=== PATIENT | male | born 1980 | race Caucasian/White ===

== ENCOUNTER 2019-02-03 11:03 | Emergency (ER) | payer MEDICAID, OTHER ==
[~2019-02-03] VITALS: Ht 175.3 cm; Wt 79.4 kg
[~2019-02-03 11:03] MED LIST: HYDR-1421
[2019-02-03 11:30] VITALS: BP 108/76
[2019-02-03] MEDS ORDERED: SODIUM CHLORIDE 0.9% 1,000 ML IV ONE ×2 (12:13)
[2019-02-03] MEDS ORDERED: PROCHLORPERAZINE EDISYLATE 5 MG/ML 2ML VIAL IV ONE (12:15)
== END 2019-02-03 17:40 | disposition left against medical advice (07) ==
LOC: ER 11:03
DX: E86.0 Dehydration (principal); F12.188 Cannabis abuse with other cannabis-induced disorder

== ENCOUNTER → 2021-07-04 | Emergency (ER) | payer OTHER ==
[~2021-07-04] VITALS: Ht 175.3 cm; Wt 81.6 kg
[~2021-07-04] MED LIST changes: +HYDROcodone-ACET 10/325MG TAB PO ONE; +IBUP400T22 PO
[2021-07-04 04:18] VITALS: BP 128/81
== END | disposition home or self-care (01) ==
LOC: ER 03:40 → EDUNIT# 03:40
DX: S46.911A Strain of unspecified muscle, fascia and tendon at shoulder and upper arm level, right arm, initial encounter (principal); F17.210 Nicotine dependence, cigarettes, uncomplicated; Z79.1 Long term (current) use of non-steroidal anti-inflammatories (NSAID); Z79.899 Other long term (current) drug therapy; W05.1XXA Fall from non-moving nonmotorized scooter, initial encounter; Y93.89 Activity, other specified; Y92.89 Other specified places as the place of occurrence of the external cause; Y99.8 Other external cause status
CPT/HCPCS: 73020

== ENCOUNTER 2021-10-28 08:29 | Inpatient (IN) | payer OTHER ==
[~2021-10-28] VITALS: Ht 175.3 cm; Wt 87.9 kg
[~2021-10-28 08:29] MED LIST changes: -HYDROcodone-ACET 10/325MG TAB PO ONE
[2021-10-28] MEDS ORDERED: SODIUM CHLORIDE 0.9% 1,000 ML IV ONE ×2 (10:15)
[2021-10-28] MEDS ORDERED: KETOROLAC TROMETH 30 MG/ML 1ML VIAL IV ONE (10:15)
[2021-10-28 10:53] LABS: Basophils # (auto) 0 10 ^3/uL (0-0.2); Basophils % (auto) 0.4 % (0.0-2.0); Eosinophils # (auto) 0.2 10 ^3/uL (0-0.8); Eosinophils % (auto) 1.8 % (0.0-7.0); Lymphocytes # (auto) 2.2 10 ^3/uL (0.4-5.4); Lymphocytes % (auto) 18.5 % (10.0-50.0); Mean Corpuscular Hemoglobin 30.7 pg (28.0-32.0); Mean Corpuscular Volume 90.2 fL (80.0-100.0); Monocytes # (auto) 1.2 10 ^3/uL (0-1.3); Monocytes % (auto) 10.5 % (0.0-12.0); Neutrophils # (auto) 8.1 10 ^3/uL (1.6-8.6); Neutrophils % (auto) 68.8 % (37.0-80.0); Nucleated Red Blood Cells % 0.1 %; Red Blood Cells 4.55 10^6/uL (4.5-5.90); Red Cell Distribution Width 13.6 % (11.8-14.3); White Blood Cell 11.8 10^3/uL (4.4-10.8)
[2021-10-28 11:17] LABS: Potassium 4.7 mmol/L (3.5-5.1)
[2021-10-28 11:22] LABS: Albumin 3.9 g/dL (3.4-5.0); BUN/Creatinine Ratio 12.8; Bilirubin, Total 0.4 mg/dL (0.2-1.0); Calcium 8.8 mg/dL (8.5-10.1); Total Protein 6.6 g/dL (6.4-8.2)
[2021-10-28 12:55] LABS: Urine Bacteria NONE SEEN /hpf (None Seen); Urine Blood 2+ /uL (Negative); Urine Mucus FEW (None Seen); Urine Specific Gravity 1.016 (1.001-1.035); Urine WBC 5 /hpf (0 - 3)
[2021-10-28] MEDS ORDERED: FUROSEMIDE 20 MG/2 ML VIAL IV ONE (14:15)
[2021-10-28] MEDS ORDERED: TAMSULOSIN HYDROCHLORIDE 0.4 MG CAP PO ONE ×2 (14:15→22:00)
[2021-10-28] MEDS ORDERED: ONDANSETRON HCL 4 MG/2 ML VIAL IV PRN (15:45)
[2021-10-28] MEDS: SODIUM CHLORIDE 0.9% 1,000 ML IV SCH (15:45)
[2021-10-28] MEDS ORDERED: HYDROcodone-ACET 5/325MG TAB PO PRN (15:45)
[2021-10-28] MEDS ORDERED: DOCUSATE SOD 100 MG CAP PO PRN (15:45)
[2021-10-28] MEDS ORDERED: cefTRIAXone 1GM/50ML D5W 50 ML IV ONE (16:00)
[2021-10-28] MEDS ORDERED: ONDANSETRON HCL 4 MG/2 ML VIAL IV ONE (18:00)
[2021-10-28] MEDS ORDERED: MORPHINE SULFATE INJ 2 MG/ml SYRG IV ONE (18:00)
[2021-10-28 18:47] LABS: INR 1.03 (0.9-1.15)
[2021-10-28] MEDS: MORPHINE SULFATE INJ 2 MG/ml SYRG IV PRN (19:51)
[2021-10-28 22:00] VITALS: BP 105/71
[2021-10-29] MEDS: SODIUM CHLORIDE 0.9% 1,000 ML IV SCH ×3 (00:05→16:45)
[2021-10-29 05:00] VITALS: BP 99/61
[2021-10-29 06:03] LABS: Basophils # (auto) 0 10 ^3/uL (0-0.2); Basophils % (auto) 0.5 % (0.0-2.0); Eosinophils # (auto) 0.3 10 ^3/uL (0-0.8); Eosinophils % (auto) 3.9 % (0.0-7.0); Hematocrit 39.8 % (41.0-53.0); Hemoglobin 13.2 g/dL (13.5-17.5); Lymphocytes % (auto) 37.8 % (10.0-50.0); Mean Corpuscular Hemoglobin 29.7 pg (28.0-32.0); Mean Corpuscular Hgb Conc. 33.1 g/dL (32.0-36.0); Mean Corpuscular Volume 89.9 fL (80.0-100.0); Monocytes # (auto) 0.7 10 ^3/uL (0-1.3); Monocytes % (auto) 8.4 % (0.0-12.0); Neutrophils % (auto) 49.4 % (37.0-80.0); Red Blood Cells 4.42 10^6/uL (4.5-5.90); Red Cell Distribution Width 13.7 % (11.8-14.3)
[2021-10-29 06:15] LABS: Albumin 3.2 g/dL (3.4-5.0); Calcium 8.4 mg/dL (8.5-10.1); Potassium 4.8 mmol/L (3.5-5.1)
[2021-10-29 06:19] LABS: Bilirubin, Total 0.4 mg/dL (0.2-1.0); Total Protein 5.5 g/dL (6.4-8.2)
[2021-10-29 09:00] VITALS: BP 102/59
[2021-10-29] MEDS: cefTRIAXone 1GM/50ML D5W 50 ML IV SCH (10:06)
[2021-10-29 13:00] VITALS: BP 115/73
[2021-10-29 17:00] VITALS: BP 127/80
[2021-10-29] MEDS: MORPHINE SULFATE INJ 2 MG/ml SYRG IV PRN (20:42)
[2021-10-29 21:54] VITALS: BP 123/78
[2021-10-30] MEDS: SODIUM CHLORIDE 0.9% 1,000 ML IV SCH ×4 (01:05→18:05)
[2021-10-30 04:52] VITALS: BP 120/73
[2021-10-30 09:00] VITALS: BP 133/77
[2021-10-30] MEDS: cefTRIAXone 1GM/50ML D5W 50 ML IV SCH (10:07)
[2021-10-30] MEDS: MORPHINE SULFATE INJ 2 MG/ml SYRG IV PRN ×3 (10:21→22:26)
[2021-10-30 12:47] VITALS: BP 124/76
[2021-10-30] MEDS ORDERED: ceFAZolin 1GM/50ML 100 ML IV ONE (13:43)
[2021-10-30] MEDS ORDERED: fentaNYL CITRATE 100 MCG/2 ML VL ONE (14:47)
[2021-10-30] MEDS ORDERED: ROCURONIUM 10MG/ML 10ML VIAL IV ONE (14:47)
[2021-10-30] MEDS ORDERED: MIDAZOLAM HCL 2MG/2ML 2ml VIAL (1mg/ml) ONE (14:47)
[2021-10-30] MEDS ORDERED: LIDOCAINE 2% (LOCAL ANESTH.) PF 5ml SDV ONE (14:51)
[2021-10-30] MEDS ORDERED: PROPOFOL 10 MG/ML 20 ML IV ONE (14:51)
[2021-10-30] MEDS ORDERED: ONDANSETRON HCL 4 MG/2 ML VIAL ONE (14:51)
[2021-10-30] MEDS ORDERED: HYDROmorphone HCL 2 MG/ML VL/or syr IV PRN ×2 (15:30)
[2021-10-30] MEDS ORDERED: ONDANSETRON HCL 4 MG/2 ML VIAL IV PRN (15:30)
[2021-10-30] MEDS ORDERED: DexAMETHasone SOD PHOS 10MG/1ML VIAL INJ ONE (15:36)
[2021-10-30] MEDS ORDERED: SUGAMMADEX 200mg/2ml Vial (100MG/ML) IV ONE (15:41)
[2021-10-30 17:00] VITALS: BP 141/88
[2021-10-30 22:16] VITALS: BP 131/72
[2021-10-31] MEDS: SODIUM CHLORIDE 0.9% 1,000 ML IV SCH ×2 (02:05→10:25)
[2021-10-31] MEDS: MORPHINE SULFATE INJ 2 MG/ml SYRG IV PRN ×2 (02:16→08:10)
[2021-10-31 04:58] VITALS: BP 105/58
[2021-10-31 08:20] VITALS: BP 114/56
[2021-10-31] MEDS ORDERED: CIPR-173 PO (09:28)
[2021-10-31] MEDS ORDERED: TRAM50TA2 PO (09:28)
[2021-10-31] MEDS: cefTRIAXone 1GM/50ML D5W 50 ML IV SCH (09:32)
[2021-10-31 12:01] VITALS: BP 114/56
[2021-10-31 12:15] VITALS: BP 129/85
== END 2021-10-31 12:45 | disposition home or self-care (01) | DRG 463 ==
LOC: ER 08:29 → OVERFLOW 15:52 → EAST 21:05
PROVIDERS: ADMIT Nurse Practitioner Family; ATTEND Family Medicine
PROC: 0TF78ZZ Fragmentation in Left Ureter, Via Natural or Artificial Opening Endoscopic (ICD-10-PCS; 2021-10-30)
PROC: 0T778DZ Dilation of Left Ureter with Intraluminal Device, Via Natural or Artificial Opening Endoscopic (ICD-10-PCS; principal; 2021-10-30 14:50)
DX: N13.6 Pyonephrosis (principal); E87.1 Hypo-osmolality and hyponatremia; D72.829 Elevated white blood cell count, unspecified; S46.911A Strain of unspecified muscle, fascia and tendon at shoulder and upper arm level, right arm, initial encounter; F17.200 Nicotine dependence, unspecified, uncomplicated; R31.9 Hematuria, unspecified; R73.9 Hyperglycemia, unspecified; Z20.822 Contact with and (suspected) exposure to COVID-19
CPT/HCPCS: 36415; 74176; 76000; 76775; 80053; 81001; 85025; 85610; 86850; 86900; 86901; 93005; 96361; 96374; 96375; G0378; J0690; J0696; J1100; J1885; J2001; J2250; J2405; J2704

== ENCOUNTER 2021-12-10 00:12 | Emergency (ER) | payer MEDICAID, OTHER ==
[~2021-12-10] VITALS: Ht 175.3 cm; Wt 81.0 kg
[2021-12-10 00:12] VITALS: BP 134/82
[~2021-12-10 00:12] MED LIST changes: +CIPR-173 PO; +TRAM50TA2 PO
[2021-12-10] MEDS ORDERED: ONDANSETRON HCL 4 MG/2 ML VIAL IV ONE (02:15)
[2021-12-10] MEDS ORDERED: HYDROmorphone HCL 2 MG/ML VL/or syr IV ONE (02:15)
[2021-12-10] MEDS ORDERED: SODIUM CHLORIDE 0.9% 1,000 ML IV ONE (02:15)
[2021-12-10 02:38] LABS: Basophils # (auto) 0.1 10 ^3/uL (0-0.2); Basophils % (auto) 0.7 % (0.0-2.0); Eosinophils # (auto) 0.5 10 ^3/uL (0-0.8); Eosinophils % (auto) 5.4 % (0.0-7.0); Hematocrit 42.5 % (41.0-53.0); Hemoglobin 14.7 g/dL (13.5-17.5); Lymphocytes # (auto) 3.2 10 ^3/uL (0.4-5.4); Lymphocytes % (auto) 33.7 % (10.0-50.0); Mean Corpuscular Hemoglobin 30.8 pg (28.0-32.0); Mean Corpuscular Hgb Conc. 34.4 g/dL (32.0-36.0); Mean Corpuscular Volume 89.3 fL (80.0-100.0); Monocytes # (auto) 0.8 10 ^3/uL (0-1.3); Monocytes % (auto) 8.5 % (0.0-12.0); Neutrophils # (auto) 4.8 10 ^3/uL (1.6-8.6); Neutrophils % (auto) 51.7 % (37.0-80.0); Red Blood Cells 4.77 10^6/uL (4.5-5.90); Red Cell Distribution Width 13.4 % (11.8-14.3); White Blood Cell 9.4 10^3/uL (4.4-10.8)
[2021-12-10 02:56] LABS: INR 0.95 (0.9-1.15); Partial Thromboplastin Time 27.1 sec (24.6-33.4)
[2021-12-10 02:57] LABS: Albumin 3.8 g/dL (3.4-5.0); BUN/Creatinine Ratio 17.1; Calcium 9.1 mg/dL (8.5-10.1); Potassium 4.2 mmol/L (3.5-5.1)
[2021-12-10 03:14] LABS: Bilirubin, Total 0.2 mg/dL (0.2-1.0); Total Protein 6.8 g/dL (6.4-8.2)
[2021-12-10 03:18] LABS: Alcohol, Urine < 3.0 mg/dL (0-10); Amphetamine Screen, Urine POSITIVE (NEGATIVE); Barbiturate Scree,Urine NEGATIVE (NEGATIVE); Benzodiazephine Screen, Urine NEGATIVE (NEGATIVE); Cocaine Screen, Urine NEGATIVE (NEGATIVE); Opiate Scree,Urine NEGATIVE (NEGATIVE); Phencyclidine Screen, Urine NEGATIVE (NEGATIVE)
[2021-12-10 03:27] LABS: Urine Bacteria NONE SEEN /hpf (None Seen); Urine WBC 98 /hpf (0 - 3)
[2021-12-10 03:28] LABS: Cannabinoid Screen, Urine POSITIVE (NEGATIVE)
[2021-12-10 03:31] LABS: Urine Blood 4+ /uL (Negative)
== END 2021-12-10 03:32 | disposition left against medical advice (07) ==
LOC: ER 00:12
DX: N39.0 Urinary tract infection, site not specified (principal); F17.210 Nicotine dependence, cigarettes, uncomplicated; Z79.2 Long term (current) use of antibiotics; Z79.1 Long term (current) use of non-steroidal anti-inflammatories (NSAID); Z79.899 Other long term (current) drug therapy
CPT/HCPCS: 36415; 71045; 74176; 80053; 80307; 81001; 84484; 85025; 85610; 85730; 93005

== ENCOUNTER 2024-07-26 13:30 | Emergency (ER) | payer MEDICAID ==
[~2024-07-26] VITALS: Ht 175.3 cm; Wt 83.0 kg
[~2024-07-26 13:30] MED LIST changes: +IBUP-1453 PO; -IBUP400T22 PO
[2024-07-26 13:52] VITALS: TEMP 98.1
[2024-07-26 14:26] LABS: Basophils # (auto) 0.1 10 ^3/uL (0-0.2); Basophils % (auto) 0.4 % (0.0-2.0); Eosinophils # (auto) 0.2 10 ^3/uL (0-0.8); Eosinophils % (auto) 1.2 % (0.0-7.0); Hematocrit 43.9 % (41.0-53.0); Hemoglobin 15.1 g/dL (13.5-17.5); Lymphocytes # (auto) 1.3 10 ^3/uL (0.4-5.4); Mean Corpuscular Hemoglobin 30.5 pg (28.0-32.0); Mean Corpuscular Hgb Conc. 34.4 g/dL (32.0-36.0); Mean Corpuscular Volume 88.8 fL (80.0-100.0); Monocytes # (auto) 1.2 10 ^3/uL (0-1.3); Neutrophils # (auto) 16.4 10 ^3/uL (1.6-8.6); Neutrophils % (auto) 85.4 % (37.0-80.0); Platelet Count (auto) 202 10^3/uL (140-450); Red Blood Cells 4.94 10^6/uL (4.5-5.90); Red Cell Distribution Width 13.9 % (11.8-14.3); White Blood Cell 19.2 10^3/uL (4.4-10.8)
[2024-07-26 14:31] LABS: Anion Gap 7 (5-15); Carbon Dioxide 29 mmol/L (20-31); Chloride 106 mmol/L (98-107); Sodium 142 mmol/L (136-145)
[2024-07-26 14:32] LABS: Calcium 10.3 mg/dL (8.7-10.4)
[2024-07-26 14:35] LABS: Rapid Strep A Screen-Throat Positive
[2024-07-26 14:36] LABS: COVID19 ANTIGEN SOFIA FIA NEGATIVE (NEGATIVE)
[2024-07-26 14:37] LABS: BUN/Creatinine Ratio 11.5 (10.0-20.0); Blood Urea Nitrogen 13 mg/dL (9-23)
[2024-07-26 14:38] LABS: Glucose 106 mg/dL (74-106)
[2024-07-26] MEDS: PENICILLIN G BENZ 1,200,000 UNITS/2 ML SYRG IM ONE (14:45)
--- NOTE | 2024-07-26 15:04 | ED.PDOC ---
History of Present Illness HPI Comments 43 year old male presents to the ED for the c/c of a Sore throat. Onset: 2 days ago. No sick contacts. Taking IBU with some improvement. Denies chest pain shortness of breath Denies inability to move neck, history of meningitis Denies difficulty swallowing nor persistent salivation Denies fevers chills night sweats Denies persistent cough, runny nose, congestion Denies loss of appetite, unintentional weight loss over the past 3 months Denies voice changes Denies history of asthma or seasonal allergies Chief Complaint: Sore Throat Time Seen by MD: 15:00 Primary Care Provider: DR AGGARWAL Reviewed Notes: Nurses Notes, Medications, Allergies Allergies: Coded Allergies: NO KNOWN ALLERGIES (Unverified , 01/05/12) Home Meds Active Scripts Tramadol Hcl (Tramadol Hcl) 50 Mg Tab, 50 MG PO QID PRN, #30 TAB Prov:TEGAN ESCOBEDO MD 10/31/21 Ciprofloxacin Hcl (Cipro) 500 Mg Tab, 1 TAB PO BID, #14 TAB Prov:TEGAN ESCOBEDO MD 10/31/21 Ibuprofen (Ibuprofen) 400 Mg Tab, 1 TAB PO Q6HPRN, #20 TAB Prov:TANA KNOWLES MD 07/04/21 Reported Medications Hydrocodone-Acetaminophen (Vicodin) 1 Tab Tab 01/05/12 Information Source: Patient, [facility] Medical Record Mode of Arrival: Ambulatory Severity: Mild Timing: Days Duration: Since onset, Days Prehospital treatment: None Past Medical History PAST MEDICAL HISTORY: Kidney Stones Surgical History: Denies all surgeries Family History Family History: Reviewed,noncontributory to illness Social History Smoker: Cigarettes Alcohol: Occasionally Drugs: Marijuana Lives In: Home Constitutional: denies: chills, diaphoresis, fatigue, fever, malaise, sweats, weakness, others EENTM: denies: blurred vision, double vision, ear bleeding, ear discharge, ear drainage, ear pain, ear ringing, eye pain, eye redness, hearing loss, mouth pain, mouth swelling, nasal discharge, nose bleeding, nose congestion, nose pain, photophobia, tearing, throat pain, throat swelling, voice changes, others Respiratory: reports: others (Sore Throat); denies: cough, hemoptysis, orthopnea, SOB at rest, shortness of breath, SOB with excertion, stridor, wheezing Cardiovascular: denies: chest pain, dizzy spells, diaphoresis, Dyspnea on exertion, edema, irregular heart beat, left arm pain, lightheadedness, palpitations, PND, syncope, others Gastrointestinal: denies: abdomen distended, abdominal pain, blood streaked bowels, constipated, diarrhea, dysphagia, difficulty swallowing, hematemesis, melena, nausea, poor appetite, poor fluid intake, rectal bleeding, rectal pain, vomiting, others Genitourinary: denies: burning, dysuria, flank pain, frequency, hematuria, incontinence, penile discharge, penile sore, pain, testicle pain, testicle swelling, urgency, others Neurological: denies: dizziness, fainting, headache, left sided numbness, left sided weakness, numbness, paresthesia, pre-existing deficit, right sided numbness, right sided weakness, seizure, speech problems, tingling, tremors, weakness, others Musculoskeletal: denies: back pain, gout, joint pain, joint swelling, muscle pain, muscle stiffness, neck pain, others Integumetry: denies: bruises, change in color, change in hair/nails, dryness, laceration, lesions, lumps, rash, wounds, others Allergic/Immunocompromised: denies: Difficulty Healing, Frequent Infections, Hives, Itching, others Hematologic/Lymphatic: denies: anemia, blood clots, easy bleeding, easy bruising, swollen glands, others Endocrine: denies: excessive hunger, excessive sweating, excessive thirst, excessive urination, flushing, intolerance to cold, intolerance to heat, unexplained weight gain, unexplained weight loss, others Psychiatric: denies: anxiety, bipolar disorder, depression, hopeless, panic disorder, schizophrenia, sleepless, suicidal, others All Other Systems: Reviewed and Negative Physical Exam General Appearance: No Apparent Distress, Normal HEENT: Normal ENT Inspection, Pharynx Normal, TMs Normal Neck: Full Range of Motion, Non-Tender, Normal, Normal Inspection Respiratory: Chest Non-Tender, Lungs Clear, No Accessory Muscle Use, No Respiratory Distress, Normal Breath Sounds, Other (Uvula midline, MMM, airway i ntact, No starwberry tounge, No koplic spots) Cardiovascular: No Edema, No JVD, No Murmur, No Gallop, Normal Peripheral Pulses, Regular Rate/Rhythm Breast Exam: Deferred Gastrointestinal: No Organomegaly, Non Tender, No Pulsatile Mass, Normal Bowel Sounds, Soft Genitalia: Deferred Pelvic: Deferred Rectal: Deferred Extremities: No calf tenderness, Normal capillary refill, Normal inspection, Normal range of motion, Non-tender, No pedal edema Musculoskeletal : Apperance: Normal Neurologic: Alert, senior web designer II-XII nml as Tested, No Motor Deficits, Normal Affect, Normal Mood, No Sensory Deficits Cerebellar Function: Normal Reflexes: Normal Skin: Dry, Normal Color, Warm Lymphatic: No Adenopathy Was a procedure done? Was a procedure done?: No Differential Dx Considerations may include: pharyngitis, strep, viral, X-Ray, Labs, Meds, VS Vital Signs Date Time Temp Pulse Resp B/P (MAP) Pulse Ox O2 Delivery O2 Flow Rate FiO2 07/26/24 16:22 94 16 141/77 (98) 97 07/26/24 16:22 94 16 97 Room Air 07/26/24 13:52 98.1 94 16 141/77 (98) 97 98.1 Lab Test 07/26/24 14:13 07/26/24 14:08 Range/Units White Blood Count 19.2 H 4.4-10.8 10^3/uL Red Blood Count 4.94 4.5-5.90 10^6/uL Hemoglobin 15.1 13.5-17.5 g/dL Hematocrit 43.9 41.0-53.0 % Mean Corpuscular Volume 88.8 80.0-100.0 fL Mean Corpuscular Hemoglobin 30.5 28.0-32.0 pg Mean Corpuscular Hemoglobin Concent 34.4 32.0-36.0 g/dL Red Cell Distribution Width 13.9 11.8-14.3 % Platelet Count 202 140-450 10^3/uL Mean Platelet Volume 7.9 6.9-10.8 fL Neutrophils (%) (Auto) 85.4 H 37.0-80.0 % Lymphocytes (%) (Auto) 7.0 L 10.0-50.0 % Monocytes (%) (Auto) 6.0 0.0-12.0 % Eosinophils (%) (Auto) 1.2 0.0-7.0 % Basophils (%) (Auto) 0.4 0.0-2.0 % Neutrophils # (Auto) 16.4 H 1.6-8.6 10 ^3/uL Lymphocytes # (Auto) 1.3 0.4-5.4 10 ^3/uL Monocytes # (Auto) 1.2 0-1.3 10 ^3/uL Eosinophils # (Auto) 0.2 0-0.8 10 ^3/uL Basophils # (Auto) 0.1 0-0.2 10 ^3/uL Nucleated Red Blood Cells 0.0 % Sodium Level 142 136-145 mmol/L Potassium Level 4.0 3.5-5.1 mmol/L Chloride Level 106 98-107 mmol/L Carbon Dioxide Level 29 20-31 mmol/L Anion Gap 7 5-15 Blood Urea Nitrogen 13 9-23 mg/dL Creatinine 1.13 0.700-1.30 mg/dL Glomerular Filtration Rate Calc 84 >90 mL/min BUN/Creatinine Ratio 11.5 10.0-20.0 Serum Glucose 106 74-106 mg/dL Calcium Level 10.3 8.7-10.4 mg/dL SARS-CoV-2 Antigen (Rapid) Negative NEGATIVE Group A Streptococcus Rapid Positive Current Medications Medications (Trade) Dose Ordered Sig/Chari Route Start Time Stop Time Status Last Admin Penicillin G Benzathine (Bicillin L-A) 1,200,000 units ONCE ONCE IM 07/26/24 14:45 07/26/24 14:46 DC 07/26/24 14:45 Dexamethasone Sodium Phosphate (Decadron Injection) 10 mg ONCE ONCE IM 07/26/24 14:45 07/26/24 14:46 DC 07/26/24 16:10 Ketorolac Tromethamine (Toradol Injection) 60 mg ONCE ONCE IM 07/26/24 14:45 07/26/24 14:46 DC 07/26/24 16:10 X-Ray, Labs, Meds, VS Comment 43 year old male presents to the ED for the c/c of a Sore throat. Patient arrives alert and oriented, ABC's intact, afebrile, vital signs stable, saturating well in room air CBC was ordered to exclude anemia, blood loss, or infection. BMP was ordered to exclude electrolyte abnormalities, renal failure, dehydration, hyperglycemia Strep Screen Patient was given: penicillin, Toradol, Decadron x 1 Exam/test findings consistent with strep throat infection. Encouraged fluid intake Acetaminophen to reduce pain/fever NSAIDs to reduce pain/fever Nonpharmacological recommendations given Warm salt water gargles Throat lozenges Humidified air Return precautions given Worsening pain Fevers past 48 hours after antibiotics Any neck pain, headache, vision issues, or other concerns Additional MDM Review of External, Non-ED records: External records reviewed. Discussion with independent historian (EMS, family) history obtained from the patient/parents (if applicable) at bedside Chronic conditions affecting care: None Social determinants of health affecting care: None Time of 1ST Reevaluation: 15:30 Reevaluation 1ST: Improved Patient Education/Counseling: Diagnosis, Treatment Family Education/Counseling: No Family Present SEPSIS Sepsis Screen Vital Signs Date Time Temp Pulse Resp B/P (MAP) Pulse Ox O2 Delivery O2 Flow Rate FiO2 07/26/24 16:22 94 16 141/77 (98) 97 07/26/24 16:22 94 16 97 Room Air 07/26/24 13:52 98.1 94 16 141/77 (98) 97 98.1 Laboratory Tests Test 07/26/24 14:13 White Blood Count 19.2 10^3/uL (4.4-10.8) H Medications Medications Dose Ordered Sig/Chari Route Start Time Stop Time Status Last Admin Dose Admin Dexamethasone Sodium Phosphate 10 mg ONCE ONCE IM 07/26/24 14:45 07/26/24 14:46 DC 07/26/24 16:10 Ketorolac Tromethamine 60 mg ONCE ONCE IM 07/26/24 14:45 07/26/24 14:46 DC 07/26/24 16:10 Penicillin G Benzathine 1,200,000 units ONCE ONCE IM 07/26/24 14:45 07/26/24 14:46 DC 07/26/24 14:45 Departure 1 Departure Time of Disposition: 15:27 Impression: Primary Impression: Strep throat Disposition: 01 HOME / SELF CARE / HOMELESS Condition: Fair Discharged With: Self Critical Care Note Critical Care Time?: No Stability Stability form required: No Heart Score Heart Score: Heart Score Response (Comments) Value History N/A 0 EKG N/A 0 Age N/A 0 Risk Factors N/A 0 Troponin N/A 0 Total 0 I personally scribed for AMBER AGUIRRE NP ([email or web address]) on 07/26/24 at 15:04. Electronically submitted by Jhonatan Mosley ([email or web address]). I personally scribed for AMBER AGUIRRE NP ([email or web address]) on 07/26/24 at 15:05. Electronically submitted by Jhonatan Mosley ([email or web address]). AMBER AGUIRRE NP Jul 26, 2024 15:04
[2024-07-26] MEDS: DexAMETHasone SOD PHOS 10MG/1ML VIAL INJ IM ONE (16:10)
[2024-07-26] MEDS: KETOROLAC TROMETH 60MG/2ML VIAL IM ONE (16:10)
[2024-07-26 16:22] VITALS: BP 141/77; PULSE 94; RESP 16; O2SAT 97
== END 2024-07-26 16:24 | disposition home or self-care (01) ==
LOC: ER 13:32
DX: J02.0 Streptococcal pharyngitis (principal); F17.210 Nicotine dependence, cigarettes, uncomplicated; F12.90 Cannabis use, unspecified, uncomplicated; F10.90 Alcohol use, unspecified, uncomplicated; Z79.899 Other long term (current) drug therapy; Z87.442 Personal history of urinary calculi; Z20.822 Contact with and (suspected) exposure to COVID-19; Y90.9 Presence of alcohol in blood, level not specified
CPT/HCPCS: 36415; 80048; 85025; 87426; 87880; 96372; 99284; J0561; J1100; J1885

== ENCOUNTER 2024-12-11 11:16 | Emergency (ER) | payer MEDICAID ==
[~2024-12-11] VITALS: Ht 175.3 cm; Wt 180.0 kg
[2024-12-11 11:25] VITALS: PULSE 83; RESP 18; TEMP 98; O2SAT 94
--- NOTE | 2024-12-11 11:28 | ED.PDOC ---
SOB-HPI HPI Comments HPI: 43M presents to the ER w/ the c/c of SOB/cough for the past 4 days. Pt went to today and was diaphoretic associated w/ possible near syncopal episodes. There were no fall, trauma, pain at this time. Pt's vitals are stable. Initial Vitals BP:140/100 BS:120 Past Medical history: Kidney Stones Past Surgical history: Lazer Sx for Kidney stones Medications: Social History: Denies smoking, ETOH, and drug use. Allergies: NKDA HPI: Poor Historian. REVIEW OF SYSTEMS: CONSTITUTIONAL: Denies acute: fever, diaphoresis, HEAD: Denies acute: headache, photophobia Eyes: Denies acute: Double vision, vision loss, eye pain, eye discharge. EARS: Denies acute: tinnitus, hearing loss, ear discharge, ear pain, THROAT: Denies acute: sore throat, swelling, difficulty swallowing , pain with swallowing, change in voice. NECK: Denies acute: neck pain, neck swelling, stiff neck. HEART: Denies acute : chest pain, palpitations, LUNGS: Denies acute: wheezing, hemoptysis ABDOMEN: Denies acute: abdominal pain, Nausea, Vomiting, diarrhea, melena , hematemesis, hematochezia SKIN: Denies acute: rash, redness, lesions, itchiness. EXTREMITIES: Denies acute: calf pain, numbness, tingling, weakness, denies pain in extremity. Denies acute: Low back pain. Neuro: Denies acute: focal neurological deficit, motor or sensory focal neurological deficit, tremors, seizure like activity, confusion, change in mental status, loss of bowel or bladder function, cauda equina like symptoms. : Denies acute: dysuria, hematuria, flank pain, increase in urinary frequency. PSYCH: Denies acute: hallucination, suicidal ideation, homicidal ideation. PHYSICAL EXAM: General: -----[id number]---acute distress, awake and alert. Head: normocephalic, atraumatic. No raccoon's eyes, no null sign. Neck: supple, trachea is midline, no swelling. Throat: Normal phonation. Eyes:, no erythema, no purulent discharge, no proptosis, no icterus. Heart: regular rate, regular rhythm, no significant murmur appreciated. Lungs: no apparent respiratory distress, Able to speak in full sentences. Mild bilateral wheezing, no rhonchi, no crackles. No stridors Abdomen: non tender to palpation, non distended, soft, no guarding, no rebound, + bowel sounds. Neuro: Awake, Alert, oriented to name, self, situation, follows commands GCS=15. Speech is normal. Skin: no petechia, no purpura, no cyanosis, non-pale, not jaundice. Lower extremities: --no - Pitting edema no deformity, no focal swelling, no calf TTP. Makes eye contact. moves all four extremities. Face: no apparent facial droop. ED COURSE: DISCLAIMER: This medical document was created using an electronic medical record system with voice recognition software and computerized dictation system. Although this docu ment has been carefully reviewed, there might still be some phonetic and typographical errors. Occasional wrong-word or "sound-alike" substitutions may have occurred due to the inherent limitations of voice recognition software. These areas are purely typographical due to imperfections of the software programs and do not reflect any compromise in the patient's medical care. Please read the chart carefully and recognize, using context, where these substitutions have occurred. Chief Complaint: Syncope Time Seen by MD: 11:30 Primary Care Provider: ALESSIA Reviewed notes: Nurses Notes, Medications, Allergies Information Source: Patient Severity: Moderate Duration: Days Context: Spontaneous Onset PE Risk Factors: None EKG EKG : Pulse Rate (adult): 75 Cardiac Rhythm: NSR Block: None Hypertrophy: None ST: Normal Comments T wave inversions on , VII, VIII Was a procedure done? Was a procedure done?: No Differential Dx Differential Diagnosis: Anxiety, Asthma, Bronchitis, Cardiogenic Shock, CHF, COPD, Dysrhythmia, Hypertension, Hyperventilation, Hyponatremia, Myocardial infarction, Panic Attack, Pneumonia, Pneumothorax, PSVT, Pulmonary Embolism, Respiratory Distress, Sinusitis, Allergic Rhinitis, Otitis Media, Peritonsillar Abscess, Peritonsillar Cellulitis, Pharyngitis, URI, Other (Sepsis, viral etiology, bacterial etiology. DDx include ACS, unstable angina, anxiety, PE, pneumothroax, neoplasm, cardiac ischemia, COPD, asthma, CHF, pleural effusion, tobacco abuse, pneumonia, hypoxia, hypercapnia, anemia., infection/sepsis., pulmonary edema. Asthma, Cardiac tamponade, infection.) X-Ray, Labs, Meds, VS Vital Signs Date Time Temp Pulse Resp B/P (MAP) Pulse Ox O2 Delivery O2 Flow Rate FiO2 12/11/24 15:21 120/70 (87) 12/11/24 13:45 20 98 Room Air* 0 21 21 12/11/24 13:30 93 19 167/108 (127) 100 12/11/24 12:30 79 19 139/92 (108) 98 12/11/24 11:36 75 12/11/24 11:25 83 18 94 Room Air* 0 21 12/11/24 11:25 98.0 83 18 142/92 (109) 94 98.0 12/11/24 11:21 98.0 87 14 144/94 92 98.0 12/11/24 11:19 75 Lab Test 12/11/24 11:25 12/11/24 11:20 Range/Units White Blood Count 9.9 4.4-10.8 10^3/uL Red Blood Count 4.71 4.5-5.90 10^6/uL Hemoglobin 14.4 13.5-17.5 g/dL Hematocrit 41.9 41.0-53.0 % Mean Corpuscular Volume 89.0 80.0-100.0 fL Mean Corpuscular Hemoglobin 30.5 28.0-32.0 pg Mean Corpuscular Hemoglobin Concent 34.2 32.0-36.0 g/dL Red Cell Distribution Width 13.6 11.8-14.3 % Platelet Count 204 140-450 10^3/uL Mean Platelet Volume 7.9 6.9-10.8 fL Neutrophils (%) (Auto) 79.5 37.0-80.0 % Lymphocytes (%) (Auto) 10.8 10.0-50.0 % Monocytes (%) (Auto) 6.8 0.0-12.0 % Eosinophils (%) (Auto) 2.2 0.0-7.0 % Basophils (%) (Auto) 0.7 0.0-2.0 % Neutrophils # (Auto) 7.9 1.6-8.6 10 ^3/uL Lymphocytes # (Auto) 1.1 0.4-5.4 10 ^3/uL Monocytes # (Auto) 0.7 0-1.3 10 ^3/uL Eosinophils # (Auto) 0.2 0-0.8 10 ^3/uL Basophils # (Auto) 0.1 0-0.2 10 ^3/uL Nucleated Red Blood Cells 0.0 % Sodium Level 140 136-145 mmol/L Potassium Level 4.4 3.5-5.1 mmol/L Chloride Level 102 98-107 mmol/L Carbon Dioxide Level 31 20-31 mmol/L Anion Gap 7 5-15 Blood Urea Nitrogen 9 9-23 mg/dL Creatinine 1.10 0.700-1.30 mg/dL Glomerular Filtration Rate Calc 86 >90 mL/min BUN/Creatinine Ratio 8.2 L 10.0-20.0 Serum Glucose 106 74-106 mg/dL Lactic Acid Level 1.0 0.4-2.0 mmol/L Calcium Level 9.5 8.7-10.4 mg/dL Magnesium Level 1.9 1.6-2.6 mg/dL Total Bilirubin 0.2 0.2-1.0 mg/dL Aspartate Amino Transferase (AST) 19 13-40 U/L Alanine Aminotransferase (ALT) 17 7-40 U/L Alkaline Phosphatase 87 46-116 U/L Troponin I High Sensitivity < 3 L </=54 ng/L B-Type Natriuretic Peptide 15.48 0-100 pg/mL Total Protein 7.6 5.7-8.2 g/dL Albumin 4.7 3.2-4.8 g/dL Influenza Type A Antigen Negative Negative Influenza Type B Antigen Negative Negative SARS-CoV-2 Antigen (Rapid) Negative NEGATIVE Current Medications Medications (Trade) Dose Ordered Sig/Chari Route Start Time Stop Time Status Last Admin Albuterol (Ventolin Medneb) 2.5 mg ONCE ONCE NEB 12/11/24 13:30 12/11/24 13:31 DC 12/11/24 13:[address] [address] Ph: [phone] DIAGNOSTIC IMAGING Diagnostic Imaging Report : [id number] Signed PATIENT: AKSHAT HARRIS ACCT: [id number] UNIT: [id number] : 1980 LOC: ER ROOM / BED: / AGE / SEX: 43 / M ADM STATUS: REG ER SERVICE 1143 ORDERING PHYSICIAN: CAROLYNN WEAVER DO PROCEDURE(s): CXRP - CHEST PORTABLE REASON: cough/bodyaches/sob/near syncope ORDER NUMBER(s): [id number], ACCESSION NUMBER(s): [id number] INDICATION: cough/bodyaches/sob/near syncope TECHNIQUE: Frontal view of the chest. COMPARISON: XR CHEST 1 VIEW on DOS: 01/20/24, CHEST PORTABLE on DOS: 12/10/21, CXRP on DOS: 12/10/21, EKG on DOS: 12/10/21 FINDINGS: . The heart and mediastinal contours are grossly unremarkable. There is no evidence of pleural disease. The lungs are clear. The bony structures of the chest are intact without fracture. IMPRESSION: 1. No evidence of acute disease. ATED BY: MARTHA MARTINEZ MD DICTATED DATE/TIME: 12/11/241221 SIGNED BY: MARTHA MARTINEZ MD SIGNED DATE/TIME: 12/11/241221 CC: Time of 1ST Reevaluation: 12:00 Reevaluation 1ST: Unchanged Time of 2ND Reevaluation: 14:55 (All swabs studies are still pending.) Time of 3RD Reevaluation: 15:18 Reevaluation 3RD: Improved Patient Education/Counseling: Diagnosis, Treatment Family Education/Counseling: No Family Present Comments Patient refused fluids. Patient refused to give us urine sample. Patient refused Solu-Medrol. Patient does not want to be admitted to the hospital and is adamant about leaving now. There has been an increased length of stay and delay of care because the swabs took so many hours to be released by the lab upstairs. MDM: patient presented with the above HPI.--respiratory symptoms----workup was initiated. patient was found with the above mentioned diagnosis. the following medications were ordered: please refer to order lists of meds and tests obtained by myself Dr. Weaver. Patient ED course and VS have been stabilized. Patient has been reassessed in the ED and remained in a stable condition. Pertinent incidental findings were discussed with the patient and/or family. Patient/family voices understanding and is agreeable with plan. Patient has been observed in the ED adequate length of time to insure improvement/stability. Escalation of care considered: Consideration of escalation to observation or admission Patient was DISCHARGED home in a stable condition. All the reports of any imaging studies that were ordered by myself were reviewed by myself. SEPSIS Sepsis Screen Physician Orders Technology Coach (12/11/24 ) Drug Screen (12/11/24 11:24) Urinalysis (12/11/24 11:24) Chest Portable (12/11/24 11:43) Electrocardigram (12/11/24 11:24) Blood Culture (12/11/24 11:24) Troponin-I Hs (12/11/24 12:24) Troponin-I Hs (12/11/24 14:24) Sodium Chloride 0.9% (12/11/24 15:15) Vital Signs Date Time Temp Pulse Resp B/P (MAP) Pulse Ox O2 Delivery O2 Flow Rate FiO2 12/11/24 15:21 120/70 (87) 12/11/24 13:45 20 98 Room Air* 0 21 21 12/11/24 13:30 93 19 167/108 (127) 100 12/11/24 12:30 79 19 139/92 (108) 98 12/11/24 11:36 75 12/11/24 11:25 83 18 94 Room Air* 0 21 12/11/24 11:25 98.0 83 18 142/92 (109) 94 98.0 12/11/24 11:21 98.0 87 14 144/94 92 98.0 12/11/24 11:19 75 Laboratory Tests Test 12/11/24 11:25 Lactic Acid Level 1.0 mmol/L (0.4-2.0) White Blood Count 9.9 10^3/uL (4.4-10.8) Medications Medications Dose Ordered Sig/Chari Route Start Time Stop Time Status Last Admin Dose Admin Albuterol 2.5 mg ONCE ONCE NEB 12/11/24 13:30 12/11/24 13:31 DC 12/11/24 13:42 Departure 1 Departure Time of Disposition: 15:17 Impression: Primary Impression: Body aches Additional Impressions: Cough Hypertension Methamphetamine abuse Dyspnea Disposition: 01 HOME / SELF CARE / HOMELESS Condition: Stable Additional Instructions: Additional instructions: Please read all instructions provided in this packet carefully. You MUST follow-up with your primary care/family doctor in 1 to 2 days. If you are unable to see your primary care/family doctor, please return to our emergency room for re-assessment and re-evaluation in 1 to 2 days. Return to the emergency room here in our facility or to the nearest ER [facility] if your symptoms change or worsen. CONSULTATIONS: you MUST Follow-up for consultation as soon as possible with: -cardiology in 1-2 days. Please call for appointment. You MUST call the consultants office yourself to make an appointment. You may need to arrange that through your insurance and/or your primary/family doctor. If you are unable to see the change management consultant in 1 to 2 days, you must return to our emergency room (or any other ER of your choice) for re-assessment and re- evaluation. Adequate fluid hydration. Although you have been discharged from the Emergency Department, this does not mean that you have a "clean bill of health". No definitive diagnosis for your symptoms has been made today. It is possible that you are in the process of developing a serious illness. This is why you must return to the ED without fail if any new or worsening symptoms develop. Avoid methamphetamine. Avoid all drugs. Below is a copy of your radiological report for follow up: Discharged With: Self Critical Care Note Critical Care Time?: No Heart Score Heart Score: Heart Score Response (Comments) Value History N/A 0 EKG N/A 0 Age N/A 0 Risk Factors N/A 0 Troponin N/A 0 Total 0 I personally scribed for CAROLYNN WEAVER DO ([email or web address]) on 12/11/24 at 11:28. Electronically submitted by Troy Joiner ([employer]). I personally scribed for CAROLYNN WEAVER DO ([email or web address]) on 12/11/24 at 11:36. Electronically submitted by Troy Joiner ([employer]). I personally scribed for CAROLYNN WEAVER DO ([email or web address]) on 12/11/24 at 12:26. Electronically submitted by Troy Joiner ([employer]). CAROLYNN WEAVER DO Dec 11, 2024 11:28
[2024-12-11 12:04] LABS: Hematocrit 41.9 % (41.0-53.0); Hemoglobin 14.4 g/dL (13.5-17.5); Mean Corpuscular Hemoglobin 30.5 pg (28.0-32.0); Mean Corpuscular Volume 89.0 fL (80.0-100.0); Nucleated Red Blood Cells % 0.0 %
--- NOTE | 2024-12-11 12:23 | [facility] ---
INDICATION: cough/bodyaches/sob/near syncope TECHNIQUE: Frontal view of the chest. COMPARISON: XR CHEST 1 VIEW on DOS: 01/20/24, CHEST PORTABLE on DOS: 12/10/21, CXRP on DOS: 12/10/21, E KG on DOS: 12/10/21 FINDINGS: . The heart and mediastinal contours are grossly unremarkable. There is no evidence of pleural disea se. The lungs are clear. The bony structures of the chest are intact without fracture. IMPRESSION: 1. No evidence of acute disease.
[2024-12-11 12:24] LABS: Alanine Aminotransferase 17 U/L (7-40); Albumin 4.7 g/dL (3.2-4.8); Alkaline Phosphatase 87 U/L (46-116); Anion Gap 7 (5-15); BUN/Creatinine Ratio 8.2 (10.0-20.0); Blood Urea Nitrogen 9 mg/dL (9-23); Calcium 9.5 mg/dL (8.7-10.4); Carbon Dioxide 31 mmol/L (20-31); Chloride 102 mmol/L (98-107); Glucose 106 mg/dL (74-106); Magnesium 1.9 mg/dL (1.6-2.6); Potassium 4.4 mmol/L (3.5-5.1); Sodium 140 mmol/L (136-145); Total Protein 7.6 g/dL (5.7-8.2)
[2024-12-11 12:27] LABS: Bilirubin, Total 0.2 mg/dL (0.2-1.0)
[2024-12-11 13:30] VITALS: PULSE 93
[2024-12-11] MEDS: methylPREDNISolone SOD SUCC 125 MG/2 ML VL IV ONE (13:30)
[2024-12-11] MEDS ORDERED: IPRATROPIUM BROM 0.5 MG/2.5ML INH SOL NEB ONE (13:30)
[2024-12-11] MEDS: ALBUTEROL SULF 2.5 MG/0.5ML(0.5%) NEB SOLN NEB ONE (13:42)
[2024-12-11 13:45] VITALS: RESP 20; O2SAT 98
[2024-12-11 15:14] LABS: COVID19 ANTIGEN SOFIA FIA NEGATIVE (NEGATIVE)
[2024-12-11 15:21] VITALS: BP 120/70
[2024-12-11] MEDS: SODIUM CHLORIDE 0.9% 1,000 ML IV ONE (15:23)
--- NOTE | 2024-12-13 07:55 | ECG ---
[facility] Test Date: 2024-12-11 Test Time: 11:19:47 Pat Name: AKSHAT HARRIS Department: [facility] ED Patient ID: [facility]-[id number] Room: Gender: M Antenna Specialist: : 1980 Requested By: CAROLYNN WEAVER Order Number: [id number] Reading MD: Darrin Yousif Measurements Intervals [place] Rate: 75 P: 60 [place]: 149 QRS: 85 QRSD: 100 T: -1 QT: 404 QTc: 452 Interpretive Statements Sinus rhythm Borderline repolarization abnormality Baseline wander in lead(s) V1 Electronically Signed On 12-18-2024 10:03:53 PST by Darrin Yousif Please click the below link to view image of tracing.
== END 2024-12-11 15:31 | disposition home or self-care (01) ==
LOC: ER 11:16
DX: R06.00 Dyspnea, unspecified (principal); M79.18 Myalgia, other site; R05.9 Cough, unspecified; I10 Essential (primary) hypertension; F15.10 Other stimulant abuse, uncomplicated; Z20.822 Contact with and (suspected) exposure to COVID-19; Z87.442 Personal history of urinary calculi
CPT/HCPCS: 36415; 71045; 80053; 82947; 83605; 83735; 83880; 84484; 85025; 87040; 87426; 87804; 93005; 94640